=== PATIENT | female | born 1980 | race Two or more races ===

== ENCOUNTER 2022-12-16 17:09 | Emergency (ER) | payer OTHER ==
[~2022-12-16] VITALS: Ht 165.1 cm; Wt 99.3 kg
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
[2022-12-16] MEDS ORDERED: KETOROLAC TROMETHAMINE INJ 60 MG/2 ML VIAL IM ONE (19:00)
[2022-12-16] MEDS ORDERED: CYCLOBENZAPRINE 10 MG TABLET PO ONE (19:00)
[2022-12-16] MEDS ORDERED: ACETAMINOPHEN 325 MG TABLET PO ONE (19:00)
[2022-12-16] MEDS ORDERED: CYCLOBENZAPRINE 10 MG TABLET ONE (19:02)
[2022-12-16] MEDS ORDERED: ACETAMINOPHEN 325 MG TABLET ONE (19:02)
[2022-12-16] MEDS ORDERED: KETOROLAC TROMETHAMINE INJ 30 MG/ML VIAL ONE (19:02)
[2022-12-16] MEDS ORDERED: IBUP-1957 PO (20:20)
[2022-12-16] MEDS ORDERED: CYCL5TAB PO (20:21)
--- NOTE | 2022-12-16 20:40 | NUR ---
Patient discharged to home in stable condition. Written and verbal after care instructions given. Patient verbalizes understanding of instruction.
[2022-12-16 20:46] VITALS: BP 110/80
== END 2022-12-16 20:40 | disposition home or self-care (01) ==
LOC: ER 17:20
DX: S29.012A Strain of muscle and tendon of back wall of thorax, initial encounter (principal); Z79.899 Other long term (current) drug therapy; Z60.2 Problems related to living alone; Z88.1 Allergy status to other antibiotic agents; V89.2XXA Person injured in unspecified motor-vehicle accident, traffic, initial encounter; Y93.89 Activity, other specified; Y92.89 Other specified places as the place of occurrence of the external cause; Y99.8 Other external cause status
CPT/HCPCS: 99283; 96372; J1885